=== PATIENT | female | born 1970 | race Caucasian/White ===

== ENCOUNTER 2018-02-03 17:38 | Emergency (ER) | payer OTHER ==
[2018-02-03] MEDS ORDERED: Lidocaine 1% 20 ML MDV INJECT ONE (18:09)
[2018-02-03] MEDS ORDERED: Diphtheria,Pertussis(Acell),Tetanus Vaccine 0.5 ML Syringe IM ONE (18:09)
--- NOTE | 2018-02-03 18:10 | EDM.PDOC ---
ED HPI GENERAL MEDICAL PROBLEM - General Chief Complaint: Laceration Stated Complaint: CUT BACK LEG Time Seen by Provider: 02/03/18 18:10 Source of Information: Reports: Patient - History of Present Illness INITIAL COMMENTS - FREE TEXT/NARRATIVE: HISTORY AND PHYSICAL: History of present illness: [ Patient working on an area pipeline, cutting the back of her knee Flexeril surface on a elpidio wire fence, she has a 4.5 cm linear laceration behind the right knee otherwise limits neurovascularly intact No fever nausea vomiting chills sweats no redness warmth or exudate ] Review of systems: As per history of present illness and below otherwise all systems reviewed and negative. Past medical history: As per history of present illness and as reviewed below otherwise noncontributory. Surgical history: As per history of present illness and as reviewed below otherwise noncontributory. Social history: No reported history of drug or alcohol abuse. Family history: As per history of present illness and as reviewed below otherwise noncontributory. Physical exam: HEENT: Atraumatic, normocephalic, pupils reactive, negative for conjunctival pallor or scleral icterus, mucous membranes moist, throat clear, neck supple, nontender, trachea midline. Lungs: Clear to auscultation, breath sounds equal bilaterally, chest nontender. Heart: S1S2, regular, negative for clicks, rubs, or JVD. Abdomen: Soft, nondistended, nontender. Negative for masses or hepatosplenomegaly. Negative for costovertebral tenderness. Pelvis: Stable nontender. Genitourinary: Deferred. Rectal: Deferred. Extremities: Atraumatic, negative for cords or calf pain. Neurovascular unremarkable. Neuro: Awake, alert, oriented. Cranial nerves II through XII unremarkable. Cerebellum unremarkable. Motor and sensory unremarkable throughout. Exam nonfocal. Skin as per history of present illness otherwise unremarkable Diagnostics: [Clinical ] Therapeutics: [T dap lidocaine ]wound cleansed and explored #8 4-0 Prolene sutures interrupted Keflex 500 by mouth twice a day #20 no refill standard wound care instructions Sutures out in 10 days Impression: [ 4.5 cm linear laceration, simple ] Definitive disposition and diagnosis as appropriate pending reevaluation and review of above. Right Leg Pain Score (Numeric/FACES): 3 - Related Data Allergies Allergy/AdvReac Type Severity Reaction Status Date / Time codeine Allergy Itching Verified 02/03/18 18:04 Home Meds: Home Meds Lisinopril/Hydrochlorothiazide [Lisinopril-Hctz 20-25 mg Tab] 1 tab PO DAILY [History] Methadone 10 mg PO BID 02/03/18 [History] metFORMIN HCl [Metformin HCl] 2,000 mg PO DAILY 02/03/18 [History] ED ROS GENERAL - Review of Systems Review Of Systems: ROS reveals no pertinent complaints other than HPI. ED EXAM, SKIN/RASH Exam: See Below Course - Vital Signs Last Recorded V/S: Last Vital Signs Temp 98.7 F 02/03/18 17:58 Pulse 91 02/03/18 17:58 Resp 18 02/03/18 17:58 BP 151/79 H 02/03/18 17:58 Pulse Ox 98 02/03/18 17:58 - Orders/Labs/Meds Orders: Active Orders 24 hr Category Date Time Status Vaccines to be Administered [RC] PER UNIT ROUTINE Care 02/03/18 18:09 Active Meds: Medications Discontinued Medications Generic Name Dose Route Start Last Admin Trade Name [place] PRN Reason Stop Dose Admin Diphtheria/Tetanus/Acell Pertussis 0.5 ml 02/03/18 18:09 02/03/18 18:18 Adacel IM 02/03/18 18:10 0.5 ml .ONCE ONE Administration Lidocaine HCl 20 ml 02/03/18 18:09 02/03/18 18:18 Xylocaine 1% INJECT 02/03/18 18:10 20 ml ONETIME ONE Administration Departure - Departure Time of Disposition: 18:32 Disposition: Home, Self-Care 01 Condition: Good Clinical Impression: Laceration - Discharge Information Referrals: PCP,None [Primary Care Provider] - Forms: ED Department Discharge Additional Instructions: Medication as prescribed Standard wound care instructions as provided Continue current medications Return if fever nausea vomiting chills sweats redness warmth or pus drainage should this develop Sutures out in 10 days The following information is given to patients seen in the emergency department who are being discharged to home. This information is to outline your options for follow-up care. We provide all patients seen in our emergency department with a follow-up referral. The need for follow-up, as well as the timing and circumstances, are variable depending upon the specifics of your emergency department visit. If you don't have a primary care physician on staff, we will provide you with a referral. We always advise you to contact your personal physician following an emergency department visit to inform them of the circumstance of the visit and for follow-up with them and/or the need for any referrals to a consulting specialist. The emergency department will also refer you to a specialist when appropriate. This referral assures that you have the opportunity for follow-up care with a specialist. All of these measure are taken in an effort to provide you with optimal care, which includes your follow-up. Under all circumstances we always encourage you to contact your private physician who remains a resource for coordinating your care. When calling for follow-up care, please make the office aware that this follow-up is from your recent emergency room visit. If for any reason you are refused follow-up, please contact the [facility] emergency department at and asked to speak to the emergency department charge nurse. - My Orders Last 24 Hours: My Active Orders 02/03/18 18:09 Vaccines to be Administered [RC] PER UNIT ROUTINE - Assessment/Plan Last 24 Hours: My Active Orders 02/03/18 18:09 Vaccines to be Administered [RC] PER UNIT ROUTINE
[2018-02-03] MEDS ORDERED: Bacitracin Oint 1 GM U/D Packet ONE (18:45)
== END 2018-02-03 18:58 | disposition home or self-care (01) ==
LOC: MW.ED 17:38
DX: S81.011A Laceration without foreign body, right knee, initial encounter (principal); Z23 Encounter for immunization; Z88.5 Allergy status to narcotic agent; Z79.899 Other long term (current) drug therapy; W26.9XXA Contact with unspecified sharp object(s), initial encounter; Y99.0 Civilian activity done for income or pay
CPT/HCPCS: 12002; 90471; 90715; 99282; 99282-25

== ENCOUNTER 2018-02-13 09:40 | Emergency (ER) | payer OTHER | END 2018-02-13 10:07 | disposition left against medical advice (07) | LOC: MW.ED 09:40 | DX: Z53.21 Procedure and treatment not carried out due to patient leaving prior to being seen by health care provider (principal) ==